=== PATIENT | female | born 1960 | race Caucasian/White ===

== ENCOUNTER 2020-03-12 12:32 | Emergency (ER) | payer BC, SELFPAY ==
[2020-03-12 12:33] VITALS: BP 155/86; PULSE 91; RESP 17; TEMP 36.4; O2SAT 100; BMI 24.0
--- NOTE | 2020-03-12 13:00 | ED.VISSUMM ---
- ER Visit Summary Date of Service: 03/12/20 Chief Complaint: Bilateral shoulder pain, bilateral wrist pain, and right knee pain History of Present Illness: The patient is a 59 F who presents with pain in both shoulders, both wrists, and right knee that has been getting worse over the past month. Patient states she has been working more than usual. 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 Patient describes her pain as sharp. Patient denies any trauma or injury. Patient states her pain improves with ibuprofen. Patient denies any paresthesias or weakness. Physical Examination: Vital signs are stable. Patient is afebrile. Patient is in no acute distress. Musculoskeletal exam reveals tenderness over the anterior aspect of the shoulders bilaterally, worse on the right. There is also tenderness over the ulnar aspect of the wrist bilaterally, worse on the right. There is also tenderness over the medial aspect of the right knee. There is no bony crepitance or step-off. Range of motion was slightly limited in abduction of the right shoulder, extension and ulnar deviation of the right wrist secondary to pain. There is no deformity. Radial pulses are equal bilaterally. There are no sensory deficits noted. Emergency Department Course and Treatment: Patient was advised that this is most likely tendinitis. Patient was instructed to use ice to the area. Patient was given a prescription for ibuprofen. Patient was given a note for work for the next 2 days. Patient was instructed to follow-up with her primary care physician in 3 to 5 days. Patient understood and was agreeable with the plan. All questions were answered. Disposition: Discharge home Impression: 1. Tendinitis This note was generated with [employer] dictation software. It may contain incorrect words, spelling, and punctuation that were not noted in review of the chart prior to signing ED Disposition - Plan for ED Patient: Disposition: Home or Assisted Living Diagnosis: Tendinitis Instructions: ED Tendinitis Calcific Prescriptions: Ibuprofen [Motrin] 800 mg PO TID PRN PRN #20 tab PRN Reason: Pain Score 1-10 Prescription Printed Referrals: [facility]GROUP OF PHYSICIANS] - 5-7 Days
[2020-03-12 13:43] VITALS: RESP 18
== END 2020-03-12 13:43 | disposition home or self-care (01) ==
LOC: ED 13:12
PROVIDERS: Emergency Provider Emergency Medicine; PCP Internal Medicine
DX: M77.8 Other enthesopathies, not elsewhere classified (principal); F17.200 Nicotine dependence, unspecified, uncomplicated
CPT/HCPCS: 99283